=== PATIENT | female | born 1965 | race Caucasian/White ===

== ENCOUNTER 2016-07-18 05:14 | Inpatient (IN) | payer OTHER ==
[2016-07-14 16:31] VITALS: BMI 33.0
[2016-07-18] VITALS (10 sets, daily range): BP systolic 120–143; BP diastolic 80–90; PULSE 53–72; TEMP 36.3–36.8; O2SAT 96–100; Ht 162.6 cm; Wt 84.5 kg
[~2016-07-18] VITALS: Ht 162.6 cm; Wt 84.5 kg
[~2016-07-18 05:14] MED LIST: METR0.7527 TOP; MISC4CAP PO; OXYC1TAB3 PO; PANT40TA PO; PROM12.57 PO
[2016-07-18] MEDS ORDERED: POLYMYXIN B SULFATE 100,000 UNITS in NSS 100ML IR SCH (06:00)
[2016-07-18] MEDS ORDERED: VANCOMYCIN INJ 400 MG in NSS 100ML IR SCH (06:00)
[2016-07-18] MEDS ORDERED: METOCLOPRAMIDE HCL 10 MG TAB PO SCH (06:00)
[2016-07-18] MEDS ORDERED: LACTATED RINGER'S 1000ML IV SCH (06:00)
[2016-07-18] MEDS ORDERED: LACTATED RINGER'S 1000ML 1,000 ML IV SCH (06:00)
[2016-07-18] MEDS ORDERED: GABAPENTIN 300 MG CAP PO SCH (06:00)
[2016-07-18] MEDS ORDERED: LACTATED RINGER'S 1000ML 500 ML IV ONE (06:00)
[2016-07-18] MEDS ORDERED: FAMOTIDINE 20 MG TAB PO SCH (06:00)
[2016-07-18] MEDS ORDERED: ACETAMINOPHEN 500 MG TAB PO SCH (06:00)
[2016-07-18 06:02] LABS: BASO % 0.6 %; BASO ABS # 0.03 K/uL (0-0.2); EOS % 4.9 %; HEMATOCRIT 36.3 % (37-47); IG% 0.2 %; LYMPH % 37.5 %; LYMPH ABS # 1.91 K/uL (1.2-3.4); MEAN CELL VOLUME 82.3 fL (80-100); MEAN CORPUSCULAR HEMOGLOBIN 28.6 pg (25-34); MEAN PLATELET VOLUME 9.3 fL (7.4-10.4); MONO % 9.8 %; PLATELET COUNT 244 K/uL (130-400); RED BLOOD COUNT 4.41 M/uL (4.2-5.4); WHITE BLOOD COUNT 5.09 K/uL (4.8-10.8)
[2016-07-18] MEDS ORDERED: MISC4CAP PO (06:02)
[2016-07-18] MEDS ORDERED: SCPTP TOP (06:03)
[2016-07-18 06:05] LABS: COMPLETE YES; MEAN CORPUSCULAR HGB CONC 34.7 g/dl (32-36)
[2016-07-18] MEDS ORDERED: MORP30TA23 PO (06:05)
[2016-07-18 06:13] LABS: INR 1.1 (0.9-1.1); PARTIAL THROMBOPLASTIN RATIO 1.1; PROTHROMBIN TIME (PATIENT) 11.3 SECONDS (9.0-12.0)
[2016-07-18 06:25] LABS: BUN/CREATININE RATIO 10.4 (10-20); CALCIUM 8.7 mg/dl (8.5-10.1); POTASSIUM 3.7 mmol/L (3.5-5.1)
[2016-07-18] MEDS ORDERED: FENTANYL CITRATE INJ 50 MCG/1 ML 2 ML VIAL ONE (06:55)
[2016-07-18] MEDS ORDERED: MIDAZOLAM HCL 1 MG/ML 2ML VIAL ONE ×2 (06:55)
[2016-07-18] MEDS ORDERED: BUPIVACAINE 0.5 % 5 MG/1 ML PF 10ML VIAL ONE (06:56)
[2016-07-18] MEDS ORDERED: SCOPOLAMINE 1.5 MG TDSY TD SCH ×2 (07:00→08:00)
[2016-07-18] MEDS ORDERED: FENTANYL CITRATE INJ 50 MCG/1 ML 2 ML VIAL IV PRN (07:00)
[2016-07-18] MEDS ORDERED: ATROPINE SULFATE 0.1 MG/ML 5ML SYR IV PRN (07:00)
[2016-07-18] MEDS ORDERED: EpHEDrine SULFATE INJ 50 MG/ML AMP IV PRN ×2 (07:00→08:00)
[2016-07-18] MEDS ORDERED: ONDANSETRON INJ 2 MG/ML 2 ML VIAL IV PRN ×3 (07:00→08:00)
[2016-07-18] MEDS ORDERED: SCOPOLAMINE 1.5 MG TDSY TD ONE (07:02)
--- NOTE | 2016-07-18 07:06 | History and Physical ---
History & Physical Date Jul 18, 2016. Chief Complaint L KNEE STIFFNESS R KNEE PAIN History of Present Illness The patient is a 51 year old female with complaints of STIFFNESS SP L TKA 8 WEEKS AGO. VERY POOR PAIN TOLERANCE POSTOP COURSE COMPLICATED BY 1 WEEK OF FLU SYMPTOMS AND K=NO PT NOW W ROM 0 TO 90 Past Medical/Surgical History Surgical Problems: (1) Post-operative state Additional History Hepatic Disease: No Endocrine Disorder: No Kidney Disease: No Hypertension: No Heart Disease: No Bleeding Tendencies: No Infectious Diseases: No Allergies Coded Allergies: Prednisone (Verified Allergy, Mild, DIFFICULT BREATHING AND TONGUE SWELLS , 07/18/16) ONLY TO ORAL MEDICATION Sulfamethoxazole w/Trimethoprim (Verified Allergy, Mild, ITCH, HEADACHE, ) Home Medications Scheduled Metronidazole (Topical) (Metrogel), 1 DOSE TOP DAILY Morphine Sulfate (Ms Contin), 30 MG PO Q12 Pantoprazole (Protonix), 40 MG PO BID Probiotic Product (Align), 1 TAB PO QAM Probiotic Product (Align), 4 MG PO DAILY Scheduled PRN Oxycodone Ir (Roxicodone Ir), 1-2 TAB PO Q4H PRN for Severe Pain Promethazine (Phenergan ), 12.5 MG PO Q4H PRN for Nausea Miscellaneous Medications Scopolamine (Transderm-Scop), 1.5 MG TOP Physical Examination Skin: warm/dry, no rash Eyes: normal inspection, EOMI, sclerae normal ENT: normal ENT inspection, pharynx normal Head: normocephalic, atraumatic Neck: supple, no adenopathy, trachea midline Respiratory/Chest: lungs clear, normal breath sounds, no respiratory distress Cardiovascular: regular rate, rhythm, no edema, no murmur Abdomen / GI: normal bowel sounds, non tender Back: normal inspection Extremities: normal inspection, normal range of motion, + pertinent finding ( VERY WELL HEALED SCAR INCISIOIN BENIGH NO SWELLING SOF T ENDPOINT OPPOSITE KNEE MEDIAL JT PAIN W VARUS DEFORMITY ) Neurologic/Psych: no motor/sensory deficits, alert, normal reflexes, oriented x 3 Diagnosis ARTHROFIBROSIS L KNE MILD DJD R KNEE ASA Classification: ASA Class II Plan of Treatment MANIPULATE KNEE INJECT R KNEE
[2016-07-18] MEDS ORDERED: METHYLPREDNISOLONE ACETATE 80 MG/ML VIAL INJ ONE (07:51)
[2016-07-18] MEDS ORDERED: PROPOFOL IV EMULSION 10 MG/ML 20 ML VIAL IV ONE (07:51)
[2016-07-18] MEDS ORDERED: LIDOCAINE HCL 2% 2 ML VIAL (20MG/ML) ONE (07:51)
[2016-07-18] MEDS ORDERED: LIDOCAINE HCL 1% MPF 5 ML VIAL INJ ONE (07:53)
--- NOTE | 2016-07-18 07:56 | [facility] Post Operative Brief Note ---
Immediate Operative Summary Operative Date Jul 18, 2016. Pre-Operative Diagnosis Arthrofibrosis mild left knee, Degenerative joint disease right knee Post-Operative Diagnosis Same as pre-operative Procedure(s) Performed Left Knee Manipulation Under Anesthesia; Right Knee Injection Surgeon Dr. Nithin Larry MD Architectural Wood Model Maker Surgeon(s) None Estimated Blood Loss 0ml Findings very soft adhesions knee easily to 125 Specimens None per surgeon Complication(s) None Disposition Recovery Room / PACU
[2016-07-18] MEDS ORDERED: LACTATED RINGER'S 1000ML 500 ML IV PRN (07:57)
[2016-07-18] MEDS ORDERED: SODIUM CHLORIDE 0.9% 1000ML 1,000 ML IV PRN (07:57)
[2016-07-18] MEDS: NO NARCOTICS OR SEDATIVES SCH ×3 (08:00→23:33)
[2016-07-18] MEDS ORDERED: NALOXONE HCL INJ 0.4 MG/1 ML VIAL/CARP IV PRN (08:00)
[2016-07-18] MEDS ORDERED: ZOLPIDEM TARTRATE 5 MG TAB PO PRN (08:00)
[2016-07-18] MEDS ORDERED: MoRPHine SULFATE 2 MG/ML CARP IV PRN (08:00)
[2016-07-18] MEDS ORDERED: MAGNESIUM HYDROXIDE SUSP 30 ML UDC PO PRN (08:00)
[2016-07-18] MEDS ORDERED: ALUMINUM/MAGNESIUM/SIMETH (MAALOX MAX) 30 ML UDC PO PRN (08:00)
[2016-07-18] MEDS ORDERED: METOCLOPRAMIDE HCL INJ 5 MG/ML 2 ML VIAL IV PRN (08:00)
[2016-07-18] MEDS ORDERED: DiphenhydrAMINE HCL 50 MG/ML VIAL IV PRN (08:00)
[2016-07-18] MEDS ORDERED: BISACODYL 10 MG SUPP PR PRN (08:00)
[2016-07-18] MEDS ORDERED: NALBUPHINE HCL INJ 10 MG/ML AMP IV PRN (08:00)
[2016-07-18] MEDS ORDERED: PROMETHAZINE HCL 25 MG TAB PO PRN (08:00)
[2016-07-18] MEDS: CHECK SCOPOLAMINE PATCH PLACEMENT SCH ×3 (08:00→23:33)
[2016-07-18] MEDS ORDERED: SOD PHOSPHATE/SOD BIPHOSPHATE ENEMA 132 ML BTL PR PRN (08:00)
[2016-07-18] MEDS ORDERED: FENTANYL 2.5MCG/ML BUPIV 0.0625% 100ML BAG ONE (08:37)
[2016-07-18] MEDS: MORPHINE SULFATE 30 MG PO SCH (09:00)
[2016-07-18] MEDS ORDERED: PANTOprazole SOD 40 MG TAB PO SCH (09:00)
[2016-07-18] MEDS ORDERED: NON-FORMULARY MEDICATION (Probiotic Product (Align) 4 MG) PO SCH (09:00)
--- NOTE | 2016-07-18 09:08 | DIAGNOSTIC IMAGING REPORT ---
LEFT KNEE 1 OR 2 VIEWS ROUTINE CLINICAL HISTORY: Pain. History of the arthroplasty. COMPARISON: 05/09/2016 DISCUSSION: There are postsurgical changes of a total left knee arthroplasty. Femoral tibial components appear well seated. Since the prior study, the surgical drain has been removed. There is a suprapatellar joint effusion. No destructive lesions are evident. IMPRESSION: 1. Postsurgical changes of a total left knee arthroplasty 2. No acute fractures 3. Joint effusion Electronically signed by: Amrit Avery M.D. 07/18/2016 9:06 AM Dictated Date/Time: 07/18/2016 9:04 AM
--- NOTE | 2016-07-18 09:29 | Anesthesiology Progress Note ---
Anesthesia Post Op Note Date & Time Jul 18, 2016 at 09:27 Vital Signs Pain Intensity: 0 Vital Signs Past 12 Hours Date Time Temp Pulse Resp B/P Pulse Ox O2 Delivery O2 Flow Rate FiO2 07/18/16 09:23 63 15 07/18/16 09:18 56 17 115/81 100 07/18/16 09:18 56 17 07/18/16 09:14 121/80 07/18/16 09:13 57 14 121/80 100 07/18/16 09:13 57 14 07/18/16 09:08 55 15 123/77 100 07/18/16 09:08 54 15 07/18/16 09:07 36.3 16 123/77 100 Nasal Cannula 10 07/18/16 09:03 55 14 07/18/16 09:03 55 14 124/73 100 07/18/16 08:58 60 18 07/18/16 08:58 60 18 115/79 98 07/18/16 08:57 62 15 100 07/18/16 08:57 63 15 07/18/16 08:53 106/72 07/18/16 08:52 62 13 07/18/16 08:52 62 13 99 07/18/16 08:48 109/72 07/18/16 08:47 64 15 07/18/16 08:47 63 15 99 07/18/16 08:43 112/75 07/18/16 08:42 62 18 07/18/16 08:42 61 18 99 07/18/16 08:38 107/73 07/18/16 08:37 64 17 07/18/16 08:37 64 17 98 07/18/16 08:33 111/74 07/18/16 08:32 66 23 07/18/16 08:32 67 23 98 07/18/16 08:28 105/69 07/18/16 08:27 69 15 98 07/18/16 08:27 70 15 07/18/16 08:23 107/69 07/18/16 08:22 72 17 97 07/18/16 08:22 72 17 07/18/16 08:18 106/73 07/18/16 08:17 66 15 07/18/16 08:17 67 15 100 07/18/16 08:13 106/71 07/18/16 08:12 73 15 100 07/18/16 08:12 75 15 07/18/16 08:08 110/75 07/18/16 08:07 79 16 07/18/16 08:07 79 16 99 07/18/16 08:03 103/73 07/18/16 08:02 36.3 87 16 107/74 97 Mask 10 07/18/16 08:02 88 16 97 07/18/16 08:02 88 16 07/18/16 05:44 36.8 72 20 126/84 96 Room Air Notes Mental Status: alert / awake / arousable, participated in evaluation Pt Amnestic to Procedure: Yes Nausea / Vomiting: adequately controlled Pain: adequately controlled Airway Patency, RR, SpO2: stable & adequate BP & HR: stable & adequate Hydration State: stable & adequate Neuraxial Anesthesia: was administered, sensory block is resolving Anesthetic Complications: no major complications apparent Epidural catheter in place for pain control for CPM until Monday07/20/16. Patient with very dense block of RLE and not as dense on LLE (although does endorse numbness/tingling of left leg). Will run continuous infusion on floor and will continue to follow daily until epidural pulled. VSS. No complications.
[2016-07-18] MEDS: FENTANYL 2.5MCG/ML BUPIV 0.0625% 100ML BAG EPI PRN ×3 (09:45→21:46)
[2016-07-18] MEDS: MULTIVITAMIN TAB PO SCH (12:04)
[2016-07-18] MEDS: D5W AND 1/2NSS + 20MEQ KCL 1,000 ML IV SCH ×2 (12:04→20:09)
[2016-07-18] MEDS: PANTOprazole SOD 40 MG TAB PO SCH ×2 (12:04→21:34)
[2016-07-18] MEDS: LACTOBACILLUS ACIDOPHILUS (FLORANEX) TAB PO SCH (12:04)
[2016-07-18] MEDS: KETOROLAC TROMETHAMINE 30 MG/ML VIAL IV. SCH ×3 (12:06→23:42)
[2016-07-18] MEDS: ACETAMINOPHEN 500 MG TAB PO SCH ×2 (13:39→21:35)
--- NOTE | 2016-07-18 15:36 | Anesthesiology Progress Note ---
Anesthesia Progress Note Date of Service Jul 18, 2016. Progress Notes Patient was seen at 1500 by myself on the floor. She stated her pain is very well controlled with the epidural and rates her pain as a 3/10 in intensity. She is tolerating the CPM along with PT. Patient also has been able to void and get to and from the bathroom with assistance. I stressed how important it was to both the patient and the nurse that she has assistance when OOB as the lumbar epidural has the potential to cause lower extremity muscle weakness and this puts her at risk for a fall. I also noted that she need to be monitored closely to ensure she voids at least every 4 hours as without a hodges she can have urinary retention from the epidural. Orders are written to ensure she voids q4 but if not a bladder scan and possible straight cath will be done ( with hodges placed after second straight cath). When asked about any other complaints, she stated she noticed some degree of a headache when she was upright to use the bathroom which appeared to improve when lying supine. This morning, she the CSE was done, the first attempt was notable for the epidural catheter that appeared to thread into the intrathecal space. The epidural was removed and I went up one level and placed the epidural without incident. While the touhy did not penetrate the subdural space, the catheter did and now she probably has a post spinal headache. I told her the therapy would be fluids, caffeine and supine position (which she is for the CPM machine). If on Monday when the epidural is removed she is still experiencing these symptoms, she would be a candidate for an epidural blood patch prior to going home. She is amenable to this if conservative therapy fails. I again expressed the importance of voiding to her and her nurse especially since her fluid intake will likely be higher than normal as a treatment for the spinal headache. All questions were answered and she agreed with the plan. The on-call anesthesia providers were made aware of the patient and I will personally follow up with her tomorrow. Van Coronel MD Staff Anesthesiologist
--- NOTE | 2016-07-18 17:57 | OPERATIVE REPORT ---
DATE OF OPERATION: 07/18/2016 PREOPERATIVE DIAGNOSES: 1. Arthrofibrosis, left knee, status post total knee replacement. 2. Degenerative arthritis right knee. POSTOPERATIVE DIAGNOSES: Same. PROCEDURES: 1. Manipulation examination of the left knee under anesthesia. 2. Intra-articular injection, right knee. SURGEON: Dr. Larry. ANESTHESIA: Epidural with sedation. ASSISTANTS: None. BLOOD LOSS: None. COMPLICATIONS: None. INDICATION FOR PROCEDURE: This patient is a 51-year-old woman with an extremely poor pain tolerance, who is about 6 weeks status post uncomplicated knee replacement surgery. She has had trouble maintaining her motion, is on large doses of narcotics, and was evaluated in the office and found to have just about 90 degrees flexion with a well-healed knee incision. DESCRIPTION OF PROCEDURE: Following satisfactory epidural, the patient was on the operating room table. The site was confirmed. Following a surgical time-out, the knee was manipulated into flexion. Multiple soft adhesions could easily be felt to release and the knee could be brought with minimal effort to about 120-125 degrees limited by the size of the patient's leg. The patient's knee was manipulated out into extension. Patellar mobilization was completed and the knee was ranged a number of times and maintained this amount of motion even with the "gravity test". Attention was then turned to about the right knee. After a surgical timeout, the right knee was prepared with Betadine and alcohol and injected with 80 mg of Depo-Medrol and 5 mL of lidocaine through an inferior medial portal. A sterile dressing was applied. The patient was then returned to her room with the epidural in place and in stable condition. I attest to the content of the Intraoperative Record and any orders documented therein. Any exceptio ns are noted below.
[2016-07-18] MEDS: ASPIRIN 81 MG ECTAB PO SCH (21:34)
[2016-07-18] MEDS: SENNA 8.6 MG TAB PO SCH (21:35)
[2016-07-18 22:37] LABS: MANUAL MICROSCOPIC REQUIRED? NO; REVIEW REQ? NO; URINE APPEARANCE CLEAR (CLEAR); URINE BILIRUBIN NEG (NEG); URINE COLOR YELLOW; URINE NITRITE NEG (NEG); URINE SPECIFIC GRAVITY 1.003 (1.000-1.030); UROBILINOGEN NEG (NEG)
[2016-07-18 22:43] LABS: ZZUR CULT IF INDIC CLEAN CATCH NO
[2016-07-19 03:05] VITALS: BP 127/85; PULSE 64; TEMP 36.8; O2SAT 99
[2016-07-19] MEDS: KETOROLAC TROMETHAMINE 30 MG/ML VIAL IV. SCH ×3 (05:24→18:25)
[2016-07-19] MEDS: ACETAMINOPHEN 500 MG TAB PO SCH ×3 (05:25→21:14)
[2016-07-19] MEDS: D5W AND 1/2NSS + 20MEQ KCL 1,000 ML IV SCH (05:32)
[2016-07-19] MEDS: FENTANYL 2.5MCG/ML BUPIV 0.0625% 100ML BAG EPI PRN ×5 (06:51→23:15)
[2016-07-19 07:40] VITALS: BP 137/86; PULSE 55; TEMP 36.3; O2SAT 93
[2016-07-19] MEDS: NO NARCOTICS OR SEDATIVES SCH ×2 (08:07→16:51)
[2016-07-19] MEDS: CHECK SCOPOLAMINE PATCH PLACEMENT SCH ×2 (08:07→16:51)
--- NOTE | 2016-07-19 08:10 | Orthopedic Progress Note ---
Orthopedic Progress Note Date of Service Jul 19, 2016. Subjective Post OP Day: 1 Reports: feeling well, Denies: SOB, calf pain, chest pain, light headedness, nausea / vomiting Additional Notes: FEELING WELL. KNEE PAIN CONTROLLED Objective calves soft nontender, N/V intact, A&O x3, toes mobile CPM IN PLACE. 115 DEGREES Date Time Temp Pulse Resp B/P Pulse Ox O2 Delivery O2 Flow Rate FiO2 07/19/16 07:40 36.3 55 16 137/86 93 Room Air 07/19/16 03:05 36.8 64 16 127/85 99 Room Air 07/18/16 22:54 36.4 54 18 123/87 97 Room Air 07/18/16 19:30 Room Air 07/18/16 19:11 61 18 127/83 07/18/16 15:26 36.4 59 18 138/90 98 2.0 07/18/16 12:49 67 17 120/82 97 2.0 07/18/16 12:25 97 Nasal Cannula 2.0 07/18/16 11:45 62 18 124/86 97 Nasal Cannula 2.0 07/18/16 10:45 36.3 58 18 131/80 99 Nasal Cannula 2.0 07/18/16 10:19 53 16 131/85 100 1.0 07/18/16 09:45 36.4 16 143/84 100 Nasal Cannula 2.0 07/18/16 09:45 Nasal Cannula 2.0 07/18/16 09:45 100 Nasal Cannula 2.0 07/18/16 09:33 115/74 07/18/16 09:29 59 14 07/18/16 09:29 59 14 100 07/18/16 09:28 118/78 07/18/16 09:24 57 13 07/18/16 09:24 57 13 100 07/18/16 09:23 63 15 07/18/16 09:18 56 17 115/81 100 07/18/16 09:18 56 17 07/18/16 09:14 121/80 07/18/16 09:13 57 14 121/80 100 07/18/16 09:13 57 14 07/18/16 09:08 55 15 123/77 100 07/18/16 09:08 54 15 07/18/16 09:07 36.3 16 123/77 100 Nasal Cannula 10 07/18/16 09:03 55 14 07/18/16 09:03 55 14 124/73 100 07/18/16 08:58 60 18 07/18/16 08:58 60 18 115/79 98 07/18/16 08:57 62 15 100 07/18/16 08:57 63 15 07/18/16 08:53 106/72 07/18/16 08:52 62 13 07/18/16 08:52 62 13 99 07/18/16 08:48 109/72 07/18/16 08:47 64 15 07/18/16 08:47 63 15 99 07/18/16 08:43 112/75 07/18/16 08:42 62 18 07/18/16 08:42 61 18 99 07/18/16 08:38 107/73 07/18/16 08:37 64 17 07/18/16 08:37 64 17 98 07/18/16 08:33 111/74 07/18/16 08:32 66 23 07/18/16 08:32 67 23 98 07/18/16 08:28 105/69 07/18/16 08:27 69 15 98 07/18/16 08:27 70 15 07/18/16 08:23 107/69 07/18/16 08:22 72 17 97 07/18/16 08:22 72 17 07/18/16 08:18 106/73 07/18/16 08:17 66 15 07/18/16 08:17 67 15 100 07/18/16 08:13 106/71 07/18/16 08:12 73 15 100 07/18/16 08:12 75 15 07/18/16 08:08 110/75 07/18/16 08:07 79 16 07/18/16 08:07 79 16 99 Assessment & Plan Assessment: POD#1 SP MANIPULATION LEFT TKA Plan: CONTINUE EPIDURAL PAIN CONTROL ANOTHER 24 HOURS. CONTINUE CPM MACHINE
[2016-07-19] MEDS: LACTOBACILLUS ACIDOPHILUS (FLORANEX) TAB PO SCH (09:00)
[2016-07-19] MEDS: METRONIDAZOLE 0.75% TOPICAL GEL 45 GM TUBE TOP SCH (09:00)
[2016-07-19] MEDS: MULTIVITAMIN TAB PO SCH (09:00)
[2016-07-19] MEDS: PANTOprazole SOD 40 MG TAB PO SCH ×2 (09:00→21:14)
[2016-07-19] MEDS: ASPIRIN 81 MG ECTAB PO SCH ×2 (09:00→21:00)
--- NOTE | 2016-07-19 09:56 | Anesthesiology Progress Note ---
Anesthesia Post Op Note Date & Time Jul 19, 2016 at 09:48 Vital Signs Pain Intensity: 2.0 Vital Signs Past 12 Hours Date Time Temp Pulse Resp B/P Pulse Ox O2 Delivery O2 Flow Rate FiO2 07/19/16 07:40 36.3 55 16 137/86 93 Room Air 07/19/16 07:20 Room Air 07/19/16 03:05 36.8 64 16 127/85 99 Room Air 07/18/16 22:54 36.4 54 18 123/87 97 Room Air Notes Mental Status: alert / awake / arousable, participated in evaluation Pt Amnestic to Procedure: Yes Nausea / Vomiting: adequately controlled Pain: adequately controlled Airway Patency, RR, SpO2: stable & adequate BP & HR: stable & adequate Hydration State: stable & adequate Anesthetic Complications: no major complications apparent Anesthetic Complications: Patient reports good pain relief from epidural for her knee which ranges 1-2/10 while on CPM machine. Epidural continues to run at ordered dose of bupivacaine/ fentanyl at 8ml/hr with approximately a T11 level. Patient continues to complain of a likely spinal headache which began yesterday after procedure. She is comfortable lying flat but has headache rated ~8/10 when sitting up for several minutes. Encouraged patient to continue fluid and caffeine intake. Patient has no other complaints related to procedure itself. Dr. Coronel updated on patients status and continued headache symptoms.
[2016-07-19] MEDS ORDERED: NURSING VERBAL MED ORDER ONE ×2 (11:00→21:00)
[2016-07-19] MEDS ORDERED: PROMETHAZINE HCL INJ 12.5 MG in SODIUM CHLORIDE 0.9% 50ML 50 ML IV PRN (11:15)
[2016-07-19 11:27] VITALS: BP 126/76; PULSE 59; TEMP 36.3; O2SAT 99
[2016-07-19 12:24] VITALS: BP 138/86; PULSE 71; O2SAT 95
[2016-07-19] MEDS: DiphenhydrAMINE HCL 50 MG/ML VIAL IV PRN ×2 (13:58→20:25)
[2016-07-19 15:32] VITALS: BP 125/86; PULSE 67; TEMP 36.5; O2SAT 97
--- NOTE | 2016-07-19 16:32 | Anesthesiology Progress Note ---
Post OP Pain Management Date & Time of Service Jul 19, 2016 at 16:27 Subjective Pain Management Day #: 1 Therapies: Epidural/IV Drugs Patient is tolerating the CPM machine very well. Her only complaint is a WISE which is likely a PDPH. Nausea has been a little bit worse today but has improved with benadryl (had rash to phenergen) and zofran. Objective Cathether Site: examined, palpated, intact, dry, non-tender, without erythma, without exudate Assessment & Plan Plan: Epidural is in place while CPM machine is going. Patient has been OOB and ambulating with assistance. She has been voiding appropriately. Only issue is a positional headache likely related to PDPH. Plan will be to discontinue the epidural infusion tomorrow morning and the anesthesiologist production underwriter will remove the epidural and likely perform an epidural blood patch given that conservative therapy with fluids and caffeine have not improved the headache. Patient is in agreement with the plan and all questions were answered.
[2016-07-19] MEDS ORDERED: DiphenhydrAMINE HCL 50 MG/ML VIAL IV PRN (21:15)
[2016-07-19] MEDS: SENNA 8.6 MG TAB PO SCH (21:15)
--- NOTE | 2016-07-19 21:26 | History and Physical ---
History & Physical Date & Time of Service: Jul 19, 2016 at 21:19 Chief Complaint: Left Knee Stiffness, Right Knee Degenerative Arthr Primary Care Physician: No Doctor, Assigned History of Present Illness Source: patient, spouse Mrs Virginia Helm is a 51 yo F with history of oral prednisone and Bactrim allergies, who presented for R knee manipulation under anesthesia with Dr Iglesias yesterday. She reports yesterday she received a dose of Toradol, and noticed a severe headache throughout the day, which she put down to a spinal headache. Today, around 2:30 pm she received another dose of Toradol with Phenergan at the same time. She reports she suddenly felt very flushed, and that her lips were dry and tingly. She called the nurse right away and received a dose of IV Benadryl, which helped improve her symptoms. She reports she noticed hives on her neck as well which have now improved. The only other time she has received Toradol was a year or so ago. Currently she feels well. She denies any airway involvement at any time. She denies any tongue swelling. Her oral prednisone allergy reaction was similar and reports her tongue swelled up entirely as well. She has received steroid injections to the knee without issue. She has never had IV steroids. She reports when she takes Bactrim she felt similar to how she did today. Reports her pain is otherwise well controlled by the epidural. Past Medical/Surgical History PMHx/PSHx: 1. Arthrofibrosis, left knee, status post total knee replacement. 2. Degenerative arthritis right knee. Family History No pertinent FHx Social History Smoking Status: Never Smoker Allergies Coded Allergies: Prednisone (Verified Allergy, Mild, DIFFICULT BREATHING AND TONGUE SWELLS , 07/18/16) ONLY TO ORAL MEDICATION Sulfamethoxazole w/Trimethoprim (Verified Allergy, Mild, ITCH, HEADACHE, ) Ketorolac Tromethamine (Verified Allergy, Unknown, HIVES, 07/19/16) Home Medications Scheduled Metronidazole (Topical) (Metrogel), 1 DOSE TOP DAILY Morphine Sulfate (Ms Contin), 30 MG PO Q12 Pantoprazole (Protonix), 40 MG PO BID Probiotic Product (Align), 1 TAB PO QAM Probiotic Product (Align), 4 MG PO DAILY Scheduled PRN Oxycodone Ir (Roxicodone Ir), 1-2 TAB PO Q4H PRN for Severe Pain Promethazine (Phenergan ), 12.5 MG PO Q4H PRN for Nausea Miscellaneous Medications Scopolamine (Transderm-Scop), 1.5 MG TOP Review of Systems See HPI for pertinent positives & negatives. A total of 10 systems reviewed and were otherwise negative. Physical Exam Vital Signs Date Time Temp Pulse Resp B/P Pulse Ox O2 Delivery O2 Flow Rate FiO2 07/19/16 16:15 Room Air 07/19/16 15:32 36.5 67 18 125/86 97 Room Air 07/19/16 12:24 71 95 07/19/16 11:27 36.3 59 16 126/76 99 Room Air 07/19/16 07:40 36.3 55 16 137/86 93 Room Air 07/19/16 07:20 Room Air 07/19/16 03:05 36.8 64 16 127/85 99 Room Air 07/18/16 22:54 36.4 54 18 123/87 97 Room Air General Appearance: WD/WN, no apparent distress Head: normocephalic, atraumatic Eyes: normal inspection ENT: hearing grossly normal Neck: supple, no JVD Respiratory/Chest: chest non-tender, lungs clear, normal breath sounds, no respiratory distress, no accessory muscle use Cardiovascular: regular rate, rhythm, no murmur, normal peripheral pulses Extremities/Musculoskelatal: no calf tenderness, no pedal edema Neurologic/Psych: alert, normal mood/affect, normal reflexes, oriented x 3 Skin: no rash, + pertinent finding (facial flushing, mild) Diagnostics Laboratory Results Results Past 24 Hours Test 07/18/16 22:29 Range/Units Urine Color YELLOW Urine Appearance CLEAR CLEAR Urine pH 6.0 4.5-7.5 Urine Specific [place] 1.003 1.000-1.030 Urine Protein NEG NEG Urine Glucose (UA) NEG NEG Urine Ketones NEG NEG Urine Occult Blood NEG NEG Urine Nitrite NEG NEG Urine Bilirubin NEG NEG Urine Urobilinogen NEG NEG Urine Leukocyte Esterase NEG NEG Impression Assessment and Plan 51 year old female with allergy to PO prednisone and Sulfa antibiotics, who likely had an allergic reaction to components of Toradol. Recommendations: - Continue Benadryl 25mg q6h IV - Could consider adding Zantac if needed - Maintain good hydration - If any concern for airway involvement, please call us / anesthesia immediately Thank you for this consult, we will continue to follow Advanced Directives Existing Advance Directive: No Existing Living Will: No Existing Power of Contour Path Tape Mill Operator: No VTE Prophylaxis VTE Risk Assessment Done? Y/N: Yes Risk Level: Moderate Resident Tracking Resident Involvement: Resident Care Provided Care Provided: [facility] Assessment and Plan Attending Addendum: I have seen and examined this patient, have directed their medical care, have supervised the medical technologist chief, and agree with the H&P as noted above. We've been asked to acute reassess the patient who reportedly received a dose of Toradol for a severe headache, and subsequently received a second dose of Toradol with Phenergan, at which time she reported feeling very flushed, lip swelling, and that her mouth was very dry and tingling. She was given immediate dose of IV Benadryl by the nurse, with some improvement in her symptoms, which included appearance of hives on her neck. The patient's main complaint at this time is that of improving hives, and dry oral mucous membranes. She reports that her lips no longer feel swollen. She at no time had any difficulty breathing. Review of Systems: The patient denies chest pain, palpitations, shortness of breath, cough, lower extremity swelling, vision change, hearing change, sore throat, fevers, chills, sweats, weight change, fatigue, nausea, vomiting, abdominal pain, pelvic pain, blood in urine or stool, dysuria, urinary frequency or urgency, lightheadedness , dizziness, headache, memory loss, abnormal bruising or bleeding, imbalance, arthralgias or myalgias, back or neck pain, night sweats. The review of systems is otherwise negative other than for that already noted above, and at least 10 systems have been reviewed. Physical Exam: The patient is awake, well-developed and adequately nourished, alert and oriented 3, normocephalic and atraumatic, lying in bed and in no acute distress. HEENT--PERRL, EOMI, mucous membranes and oropharynx dry. Complexion is dylan. Neck--supple, no JVD or bruits, thyroid normal, trachea midline, no adenopathy. Heart--normal S1 and S2, no extra beats, no murmurs, rubs or gallops. Lungs--clear bilaterally with good air movement, no respiratory distress, no accessory muscle use. Abdomen--normal bowel sounds and soft, nontender and nondistended, no hernias or masses, no organomegaly. Extremities--no cyanosis, clubbing or edema. There are good distal pulses b/l. Dermatologic--resolving hives around neck. Neurologic--cranial nerves II through XII grossly intact, motor and sensory examination normal, vestibular function normal. Rheumatologic--normal range of motion, nontender, muscles and joints. Psychiatric--normal affect. Assessment and Plan: Allergic/Adverse Reaction to Combination of Toradol and Phenergan--we'll continue have Benadryl available 0.5 mg IV every 4 hours when necessary. She reportedly has had an adverse reaction to oral prednisone in the past, so unless she would have a recurrence of symptoms worse then she began with, would avoid using IV Solu-Medrol at this time. That being said she has tolerated steroid injections in her joint, and if necessary, could use IV Solu-Medrol. Have encouraged patient to continue to drink plenty of liquids, she still x-ray dehydrated, and we'll keep IV fluids running through the evening. As noted above, she did not have any interval of difficulty with breathing. If she were to develop an acute episode of breathing difficulty this evening, racemic epi would be an appropriate acute treatment. All other medications been written reviewed and can continue to be used. Would not use Toradol again, and would be careful about use of Phenergan as well unless closely monitored.
[2016-07-19 22:50] VITALS: BP 136/86; PULSE 59; TEMP 36.4; O2SAT 100
[2016-07-20] MEDS: DiphenhydrAMINE HCL 50 MG/ML VIAL IV PRN (02:34)
[2016-07-20 04:00] VITALS: BP 162/96; PULSE 58; TEMP 36.4; O2SAT 97
[2016-07-20] MEDS: ACETAMINOPHEN 500 MG TAB PO SCH ×2 (05:52→14:15)
[2016-07-20 07:28] VITALS: BP 157/96; PULSE 61; TEMP 36.3; O2SAT 95
[2016-07-20] MEDS ORDERED: MORP30TA23 PO (07:55)
[2016-07-20] MEDS ORDERED: OXYC1TAB3 PO (07:55)
[2016-07-20] MEDS ORDERED: ASPEC81 PO (07:55)
[2016-07-20] MEDS ORDERED: ZOLP12.5 PO (07:55)
[2016-07-20] MEDS ORDERED: ACET-1138 PO (07:55)
--- NOTE | 2016-07-20 07:56 | Discharge Instructions ---
Discharge Instructions Admission Reason for Admission: Left Knee Stiffness, Right Knee Degenerative Arthr Discharge Discharge Diagnosis / Problem: sp manipulation left TKA Discharge Goals Goal(s): Decrease discomfort, Improve function, Increase independence Activity Recommendations Activity Limitations: per Instructions/Follow-up section . Instructions / Follow-Up Instructions / Follow-Up ACTIVITY RECOMMENDATIONS: SELF CARE INSTRUCTIONS AFTER TOTAL KNEE REPLACEMENT A. You may need to continue a physical therapy program after discharge from the hospital. There are several options available to you. Your doctor will assist you in selecting the best one for you. 1. An out-patient facility 2 to 3 times a week for therapy or home therapy. 2. Continue working on all exercises taught to you in the hospital. Your goals should be to increase bending of your knee to 90 degrees and beyond and to fully straighten your knee. B. You may progress at your own pace from walking with a walker or crutches to a cane; then to no assistive devices. C. Make walking a part of your daily routine. Be up as much as comfortable with rest periods throughout the day. Rest with leg elevation is very important. Use the ice wrap frequently for the first 3-4 weeks. D. There are no restrictions on activities. You may ride in a car, shop, participate in bilingual medical receptionist and all social activities. SPECIAL CARE INSTRUCTIONS: VERY IMPORTANT TO READ AND REVIEW A. There are a few signs you need to watch for after you are home. Call [facility] if you notice any of the followin. Increased severe knee pain. Some pain is expected especially when you exercise. 2. Increased swelling in your leg or knee; pain or swelling of the calf muscle in either lower leg. 3. Any fluid drainage from the incision. 4. Shortness of breath or chest pain. B. Please call [facility] at if you have any concerns or questions about your operation or recovery. The doctor or his nurse will return your call promptly. C. You must take antibiotics before dental work, bladder, bowel or other surgery. Your doctor will provide you with a permanent care to carry describing this precaution. IMPORTANT: * REMEMBER TO TAKE ASPIRIN, 81 MG, TWICE DAILY FOR 4 WEEKS UNLESS OTHERWISE DIRECTED. THIS IS YOUR BLOOD THINNER. FOLLOW UP VISIT: If appointment is not already scheduled: Please call [facility] to make a follow-up appointment for 4 weeks after your surgery at . Current Hospital Diet Patient's current hospital diet: Regular Diet Discharge Diet Recommended Diet: Regular Diet Procedures Procedures Performed: Left Knee Manipulation Under Anesthesia; Right Knee Injection Pending Studies Studies pending at discharge: no Medical Emergencies . Who to Call and When: Medical Emergencies: If at any time you feel your situation is an emergency, please call 911 immediately. . Non-Emergent Contact Non-Emergency issues call your: Primary Care Provider . "Provider Documentation" section prepared by China Maldonado. VTE Core Measure Inpt VTE Proph given/why not?: Other Anticoagulation, T.E.D. Stockings, SCD's
[2016-07-20] MEDS: CHECK SCOPOLAMINE PATCH PLACEMENT SCH ×2 (07:58)
[2016-07-20] MEDS: NO NARCOTICS OR SEDATIVES SCH ×2 (07:58)
[2016-07-20] MEDS ORDERED: [UNRECOGNIZED DRUG - REMARK] ONE (08:00)
--- NOTE | 2016-07-20 08:30 | Orthopedic Progress Note ---
Orthopedic Progress Note Date of Service Jul 20, 2016. Subjective Post OP Day: 2 Reports: feeling well Additional Notes: CPM IN PLACE, [address]. PATIENT IS COMFORTABLE TODAY. COMPLAINING OF HEADACHE YESTERDAY AND WAS PLANNING FOR BLOOD PATCH TODAY. SHE IS LESS SYMPTOMATIC TODAY AND MAY RECONSIDER IT. Objective calves soft nontender, N/V intact, incision C/D/I Date Time Temp Pulse Resp B/P Pulse Ox O2 Delivery O2 Flow Rate FiO2 07/20/16 07:28 36.3 61 17 157/96 95 Room Air 07/20/16 04:00 36.4 58 16 162/96 97 Room Air 07/20/16 01:00 Room Air 07/19/16 22:50 36.4 59 16 136/86 100 Room Air 07/19/16 16:15 Room Air 07/19/16 15:32 36.5 67 18 125/86 97 Room Air 07/19/16 12:24 71 95 07/19/16 11:27 36.3 59 16 126/76 99 Room Air Assessment & Plan Assessment: POD#2 SP MANIPULATION LEFT TKA Plan: WILL SHUT OFF EPIDURAL THIS AM. WILL SEE HOW SHE DOES WITH PAIN CONTROL IF PAIN CONTROLLED AFTER LUNCH MAY DC HOME TO [place]. WILL LET ANESTHESIA DETERMINE IF SHE NEEDS BLOOD PATCH
[2016-07-20] MEDS: MORPHINE SULFATE 30 MG PO SCH (09:00)
[2016-07-20] MEDS: METRONIDAZOLE 0.75% TOPICAL GEL 45 GM TUBE TOP SCH (09:00)
[2016-07-20] MEDS: LACTOBACILLUS ACIDOPHILUS (FLORANEX) TAB PO SCH (09:00)
[2016-07-20] MEDS: PANTOprazole SOD 40 MG TAB PO SCH (09:30)
[2016-07-20] MEDS: ASPIRIN 81 MG ECTAB PO SCH (09:30)
[2016-07-20] MEDS: MULTIVITAMIN TAB PO SCH (09:31)
[2016-07-20] MEDS: OXYCODONE HCL IR 5 MG TAB (IMMEDIATE RELEASE) PO PRN ×2 (09:33→14:14)
[2016-07-20 11:25] VITALS: BP 140/91; PULSE 69; TEMP 36.5; O2SAT 97
--- NOTE | 2016-07-20 11:26 | Anesthesiology Progress Note ---
Anesthesia Post Op Note Date & Time Jul 20, 2016 at 11:15 Vital Signs Pain Intensity: 8.0 Vital Signs Past 12 Hours Date Time Temp Pulse Resp B/P Pulse Ox O2 Delivery O2 Flow Rate FiO2 07/20/16 08:00 Room Air 07/20/16 07:28 36.3 61 17 157/96 95 Room Air 07/20/16 04:00 36.4 58 16 162/96 97 Room Air 07/20/16 01:00 Room Air Notes Mental Status: alert / awake / arousable, participated in evaluation Pt Amnestic to Procedure: Yes Nausea / Vomiting: adequately controlled Pain: adequately controlled Airway Patency, RR, SpO2: stable & adequate BP & HR: stable & adequate Hydration State: stable & adequate Neuraxial Anesthesia: sensory block resolved Anesthetic Complications: no major complications apparent Case discussed with Dr. Larry and Dr. Coronel. Pt's headache has diminished. She reportedly had rash and swelling attributed to Toradol and now believes headache was also drug-related. With regards to epidural, agreed upon plan to discontinue epidural infusion and assess analgesia provided by p.o. analgesics. This was done this morning and pt tolerating without severe pain. Epidural catheter subsequently removed, tip intact. Instructed pt and nurse that pt should stay for 2 hours observation for any complaint of back pain or neurologic signs or symptoms of lower extremities. Afterwards she may be discharged as per surgeon.
--- NOTE | 2016-07-20 12:55 | Anesthesiology Progress Note ---
Anesthesia Post Op Note Date & Time Jul 20, 2016 at 12:53 Vital Signs Pain Intensity: 8.0 Vital Signs Past 12 Hours Date Time Temp Pulse Resp B/P Pulse Ox O2 Delivery O2 Flow Rate FiO2 07/20/16 11:25 36.5 69 20 140/91 97 Room Air 07/20/16 08:00 Room Air 07/20/16 07:28 36.3 61 17 157/96 95 Room Air 07/20/16 04:00 36.4 58 16 162/96 97 Room Air 07/20/16 01:00 Room Air Notes Mental Status: alert / awake / arousable, participated in evaluation Pt Amnestic to Procedure: Yes Nausea / Vomiting: adequately controlled Pain: adequately controlled Airway Patency, RR, SpO2: stable & adequate BP & HR: stable & adequate Hydration State: stable & adequate Anesthetic Complications: no major complications apparent Pt tolerating and satisfied with p.o analgesics. Denies back pain or lower extremity symptoms. OK for discharge from anesthesia standpoint.
[2016-07-20 13:18] VITALS: BP 153/93; PULSE 61; TEMP 36.7; O2SAT 98
--- NOTE | 2016-07-20 14:35 | Family Medicine Progress Note ---
Progress Note Date of Service Jul 20, 2016. Subjective Pt evaluation today including: conversation w/ patient, physical exam, chart review Pain: controlled PO Intake: WNL Voiding: no voiding problems Patient feeling well and has not had any swelling/ tingling of the lips since night before Anticipating d/c today Constitutional: No fever Eyes: No worsening of vision ENT: No hearing loss Respiratory: No cough, No dyspnea on exertion, No shortness of breath, No sputum, No wheezing Cardiovascular: No chest pain Abdomen: No constipation, No diarrhea, No nausea, No pain, No vomiting Musculoskeletal: No joint pain, No muscle pain Neurologic: No balance problems, No paralysis, No weakness Endo: + fatigue Skin: No rash Medications Medications Administered Medications (Trade) Dose Ordered Sig/Alicia Route Start Time Stop Time Status Last Admin Dose Admin Lactated Ringer's 500 ml @ 999 mls/hr Q31M ONCE IV 07/18/16 06:00 07/18/16 06:30 DC 07/18/16 06:19 999 MLS/HR Lactated Ringer's (Lr 1000ml) 1,000 ml @ 60 mls/hr [id number] IV 07/18/16 06:00 07/18/16 22:39 DC 07/18/16 06:20 60 MLS/HR Acetaminophen (Tylenol Tab) 1,000 mg PREOP PO 07/18/16 06:00 07/18/16 18:00 DC 07/18/16 06:21 1,000 MG Famotidine (Pepcid Tab) 20 mg PREOP PO 07/18/16 06:00 07/18/16 18:00 DC 07/18/16 06:21 20 MG Gabapentin (Neurontin Cap) 900 mg PREOP PO 07/18/16 06:00 07/18/16 18:00 DC 07/18/16 06:21 900 MG Metoclopramide HCl (Reglan Tab) 10 mg PREOP PO 07/18/16 06:00 07/18/16 18:00 DC 07/18/16 06:20 10 MG Miscellaneous Information (Check Scopolamine Patch Placement) 1 ea QS N/A 07/18/16 08:00 07/21/16 07:01 07/20/16 07:58 1 EA Scopolamine (Transderm-Scop Patch) 1.5 mg STK-MED ONCE TD 07/18/16 07:02 07/18/16 07:03 DC 07/18/16 07:05 1.5 MG Methylprednisolone Acetate (Depo-Medrol IM) 80 mg ONE ONCE INJ 07/18/16 07:51 07/18/16 07:52 DC 07/18/16 07:51 80 MG Lidocaine HCl 3 ml 3 ml ONE ONCE INJ 07/18/16 07:53 07/18/16 07:55 DC 07/18/16 07:53 3 ML Potassium Chloride/Dextrose/ Sod Cl (D5W And 1/2nss + 20meq KCl) 1,000 ml @ 100 mls/hr Q10H IV 07/18/16 10:20 07/19/16 10:19 DC 07/19/16 05:32 100 MLS/HR Acetaminophen (Tylenol Tab) 1,000 mg Q8 PO 07/18/16 14:00 08/17/16 13:59 07/20/16 14:15 1,000 MG Senna (Senokot Tab) 17.2 mg HS PO 07/18/16 21:00 08/17/16 20:59 07/19/16 21:15 17.2 MG Diphenhydramine HCl (Benadryl Cap) 25 mg Q8H PRN PO 07/18/16 08:00 08/17/16 07:59 07/20/16 09:33 25 MG Multivitamins (Multivitamin Tab) 1 tab QAM PO 07/18/16 12:00 08/17/16 11:59 07/20/16 09:31 1 TAB Ketorolac Tromethamine (Toradol Inj) 30 mg Q6 IV. 07/18/16 12:00 07/19/16 20:57 DC 07/19/16 18:25 30 MG Aspirin (Ecotrin Tab) 81 mg BID PO 07/18/16 21:00 08/17/16 20:59 07/20/16 09:30 81 MG Metronidazole HCl (Metrogel Topical Gel) 1 appln DAILY TOP 07/19/16 09:00 07/29/16 08:59 07/20/16 09:00 1 APPLN Oxycodone HCl (Roxicodone Immediate Rel Tab) 10 mg Q4H PRN PO 07/18/16 08:00 08/01/16 07:59 Future hold 07/20/16 14:14 10 MG Pantoprazole Sodium (Protonix Tab) 40 mg BID PO 07/18/16 12:00 08/17/16 11:59 07/20/16 09:30 40 MG Lactobacillus Acidophilus (Floranex Tab) 1 tab QAM PO 07/18/16 12:00 08/17/16 11:59 07/19/16 09:00 1 TAB Fentanyl/ Bupivacaine HCl (Fentanyl 2.5MCG/ Ml/Bupivacaine 0.0625%) 100 ml PRN PRN EPI 07/18/16 08:00 07/20/16 08:00 DC 07/19/16 23:15 100 ML Diphenhydramine HCl (Benadryl Inj) 25 mg Q6H PRN IV 07/18/16 08:00 07/20/16 08:00 DC 07/20/16 02:34 25 MG Ondansetron HCl (Zofran Inj) 4 mg Q6H PRN IV 07/18/16 08:00 07/20/16 08:00 DC 07/19/16 05:25 4 MG Miscellaneous Information 1 ea 1 ea QS N/A 07/18/16 08:00 07/20/16 08:00 DC 07/20/16 07:58 1 EA Sodium Chloride 1,000 ml @ 15 mls/hr Q24H PRN IV 07/18/16 07:57 08/17/16 07:56 07/19/16 11:21 15 MLS/HR Promethazine HCl/ Sodium Chloride (Phenergan Inj/ Nss 50ml) 50.5 ml @ 202 mls/hr Q8H PRN IV 07/19/16 11:15 08/18/16 11:14 07/19/16 11:21 202 MLS/HR Miscellaneous (Stop Order) 1 ea TODAY@0800 ONCE N/A 07/20/16 08:00 07/20/16 08:01 DC 07/20/16 07:58 1 EA Objective Vital Signs Date Time Temp Pulse Resp B/P Pulse Ox O2 Delivery O2 Flow Rate FiO2 07/20/16 13:18 36.7 61 19 153/93 98 Room Air 07/20/16 11:25 36.5 69 20 140/91 97 Room Air 07/20/16 08:00 Room Air 07/20/16 07:28 36.3 61 17 157/96 95 Room Air 07/20/16 04:00 36.4 58 16 162/96 97 Room Air 07/20/16 01:00 Room Air 07/19/16 22:50 36.4 59 16 136/86 100 Room Air 07/19/16 16:15 Room Air 07/19/16 15:32 36.5 67 18 125/86 97 Room Air Physical Exam General Appearance: WD/WN, no apparent distress Eyes: normal inspection ENT: normal ENT inspection Neck: supple Respiratory/Chest: lungs clear, normal breath sounds, no respiratory distress, no accessory muscle use Cardiovascular: regular rate, rhythm, no murmur Extremities: normal inspection Neurologic/Psychiatric: alert, normal mood/affect, oriented x 3 Skin: normal color, warm/dry, no rash Lymphatic: no adenopathy Assessment and Plan Allergic reaction: Patient's symptoms have completely resolved. OK on our stand point and will sign off at this time. Recommend avoiding Toradol in the future. chart reviewed, d/w dr dawn. tried to see pt multiple times, was not in room , then was discharged by ortho. as above. anesthesia had re-evaluated as well Continued [facility] stay due to: other Discharge planning: uncertain
[2016-07-20] MEDS ORDERED: NURSING VERBAL MED ORDER ONE (15:00)
[2016-07-20] MEDS ORDERED: MoRPHine SULFATE 2 MG/ML CARP IV ONE (15:00)
[2016-07-20 15:27] VITALS: BP 153/93; PULSE 61; TEMP 36.7; O2SAT 98
--- NOTE | 2016-07-29 09:15 | DISCHARGE SUMMARY ---
DISCHARGE DIAGNOSIS: Left knee arthrofibrosis. SECONDARY DIAGNOSIS: Degenerative joint disease, right knee. PROCEDURE: The patient underwent manipulation of the left knee under anesthesia with Dr. Larry on 07/18/2016. BRIEF HISTORY: Please see previously dictated history and physical. HOSPITAL SUMMARY: The patient was admitted on the above day for the above procedure. Procedure went without complication. The patient was placed in a CPM machine postoperatively. Postop day 1, the patient was feeling well. Her pain was controlled. She had an epidural in place for pain control. Knee was flexing to 115 degrees. Vital signs were stable. She was afebrile. She was neurovascularly intact. The patient will remain on CPM with aggressive physical therapy. Postop day 2, the patient is still feeling comfortable. She was complaining of headache and was scheduled for a blood patch today. This morning she is less symptomatic and is considering not doing the blood patch. Epidural was shut off earlier this morning. Pain is still controlled. The patient did well with her physical therapy and was discharged to home later that day in stable condition. For further review please see the chart. Lab, x-ray data and discharge instructions as per chart.
== END 2016-07-20 16:15 | disposition home or self-care (01) | DRG 554 ==
LOC: ENRESERVTM → ENRESERVDT → C.ACU 05:14 → C.3E 06:12
PROVIDERS: ADMIT Orthopaedic Surgery; ATTEND Orthopaedic Surgery
PROC: 3E0U33Z Introduction of Anti-inflammatory into Joints, Percutaneous Approach (ICD-10-PCS; principal; 2016-07-18 07:15)
PROC: 0SNDXZZ Release Left Knee Joint, External Approach (ICD-10-PCS; principal; 2016-07-18 07:15)
DX: M24.662 Ankylosis, left knee (principal); M17.11 Unilateral primary osteoarthritis, right knee; Z88.2 Allergy status to sulfonamides; E86.0 Dehydration; Z96.652 Presence of left artificial knee joint; Z98.890 Other specified postprocedural states